=== PATIENT | female | born 1990 | race American Indian/Alaskan Native ===

== ENCOUNTER 2016-08-12 15:18 | Emergency (ER) | payer MEDICAID ==
--- NOTE | 2016-08-12 17:19 | Emergency Department Report ---
ED Abdominal Pain HPI - General Chief Complaint: Abdominal Pain Stated Complaint: BACK/ABD PAIN Time Seen by Provider: 08/12/16 17:06 Source: patient Mode of arrival: Ambulatory Limitations: No Limitations - History of Present Illness Initial Comments: 25-year-old female presents to the emergency department complaining of lower abdominal pain and back pain. Symptoms have been intermittent for the past 2 days. Patient describes cramping pain. Patient states that she had a vaginal delivery in [place], [place] on 08/03/2016. This delivery was complicated by blood loss requiring transfusion. Patient states she is continuing to have mild vaginal bleeding, but this is improving on a daily basis. She denies fever. There has been no nausea or vomiting. There are no other complaints. MD Complaint: abdominal pain -: Gradual, days(s) (2) Location: suprapubic Radiation: none Migration to: no migration Severity: moderate Severity scale (0 -10): 5 Quality: cramping Consistency: intermittent Improves With: nothing Worsens With: nothing Context: recent surgery/procedure Associated Symptoms: other (back pain) - Related Data Previous Rx's Medication Instructions Recorded Last Taken Type Labetalol [Normodyne TAB] 200 mg PO BID #60 tablet 06/04/13 04/16/14 Rx amLODIPine [Norvasc] 10 mg PO DAILY #30 tab 04/17/14 Unknown Rx Ferrous Sulfate [Feosol 325 MG tab] 325 mg PO BID #60 tablet 01/02/15 Unknown Rx Ibuprofen [Motrin 600 MG tab] 600 mg PO Q6H #30 tablet 01/02/15 Unknown Rx Labetalol [Normodyne TAB] 300 mg PO TID #120 tablet 01/02/15 Unknown Rx NIFEdipine XL [Procardia Xl] 30 mg PO QDAY #30 tablet 01/02/15 Unknown Rx Vit-Fe Fumar-FA [ 1 each PO QDAY #30 tablet 01/02/15 Unknown Rx Vitamin] Labetalol [Normodyne TAB] 400 mg PO TID #120 tablet 01/03/15 Unknown Rx NIFEdipine XL [Procardia Xl] 30 mg PO Q12HR #60 tab 01/03/15 Unknown Rx HYDROcodone/APAP 5-325 [Ilfeld 2 each PO Q6H PRN #20 tablet 08/12/16 Unknown Rx 5-325 mg TAB] Allergies Allergy/AdvReac Type Severity Reaction Status Date / Time No Known Allergies Allergy Verified 12/31/14 21:17 ED Review of Systems ROS: Stated complaint: BACK/ABD PAIN Other details as noted in HPI Comment: All other systems reviewed and negative Gastrointestinal: abdominal pain Genitourinary: abnormal menses Musculoskeletal: back pain ED Past Medical Hx - Past Medical History Previous Medical History?: Yes Hx Hypertension: Yes (PIH superimposed on chronic) Hx CVA: No Hx Heart Attack/AMI: No Hx Congestive Heart Failure: No Hx Diabetes: No Hx Deep Vein Thrombosis: No Hx Pulmonary Embolism: No Hx GERD: No Hx Liver Disease: No Hx Renal Disease: No Hx Sickle Cell Disease: No Hx Arthritis: No Hx Headaches / Migraines: No Hx Seizures: No Hx Kidney Stones: No Hx Psychiatric Treatment: No Hx Asthma: Yes (last attack 10yrs ago) Hx COPD: No Hx Tuberculosis: No Hx Dementia: No Hx HIV: No Additional medical history: Vaginal delivery x 4 - Surgical History Past Surgical History?: No Hx Coronary Stent: No Hx Open Heart Surgery: No Hx Pacemaker: No Hx Internal Defibrillator: No Hx Cholecystectomy: No Hx Appendectomy: No Hx Breast Surgery: No - Family History Family history: no significant - Social History Smoking Status: Former Smoker Substance Use Type: Prescribed - Medications Home Medications: Home Medications Medication Instructions Recorded Confirmed Last Taken Type Labetalol [Normodyne TAB] 200 mg PO BID #60 tablet 06/04/13 04/16/14 04/16/14 Rx amLODIPine [Norvasc] 10 mg PO DAILY #30 tab 04/17/14 Unknown Rx Ferrous Sulfate [Feosol 325 MG tab] 325 mg PO BID #60 tablet 01/02/15 Unknown Rx Ibuprofen [Motrin 600 MG tab] 600 mg PO Q6H #30 tablet 01/02/15 Unknown Rx Labetalol [Normodyne TAB] 300 mg PO TID #120 tablet 01/02/15 Unknown Rx NIFEdipine XL [Procardia Xl] 30 mg PO QDAY #30 tablet 01/02/15 Unknown Rx Vit-Fe Fumar-FA [ 1 each PO QDAY #30 tablet 01/02/15 Unknown Rx Vitamin] Labetalol [Normodyne TAB] 400 mg PO TID #120 tablet 01/03/15 Unknown Rx NIFEdipine XL [Procardia Xl] 30 mg PO Q12HR #60 tab 09/20/15 Unknown Rx HYDROcodone/APAP 5-325 [Ilfeld 2 each PO Q6H PRN #20 tablet 08/12/16 Unknown Rx 5-325 mg TAB] ED Physical Exam - General Limitations: No Limitations General appearance: alert, in no apparent distress - Head Head exam: Present: atraumatic, normocephalic - Eye Eye exam: Present: normal appearance, PERRL, EOMI - ENT ENT exam: Present: normal exam, normal orophraynx, mucous membranes moist - Neck Neck exam: Present: normal inspection, full ROM. Absent: tenderness - Respiratory Respiratory exam: Present: normal lung sounds bilaterally. Absent: respiratory distress - Cardiovascular Cardiovascular Exam: Present: regular rate, normal rhythm, normal heart sounds - GI/Abdominal GI/Abdominal exam: Present: soft, tenderness (mild suprapubic tenderness to palpation). Absent: distended, normal bowel sounds - Extremities Exam Extremities exam: Present: normal inspection, full ROM. Absent: tenderness - Back Exam Back exam: Present: normal inspection, full ROM. Absent: tenderness - Neurological Exam Neurological exam: Present: alert, oriented X3. Absent: motor sensory deficit - Skin Skin exam: Present: warm, dry, intact ED Course Vital Signs 08/12/16 08/12/16 15:39 17:43 Temperature 98.8 F 98 F Pulse Rate 87 76 Respiratory 20 14 Rate Blood Pressure 157/105 Blood Pressure 136/99 [Right] O2 Sat by Pulse 100 100 Oximetry ED Medical Decision Making - Lab Data Result diagrams: 08/12/16 17:59 08/12/16 17:59 - Medical Decision Making Laboratory results reviewed and discussed with the patient. There is low suspicion of retained proximal of conception due to the improvement in vaginal bleeding and unremarkable labs. Patient will be discharged home at this time to follow up with [facility]. - Differential Diagnosis UTI, retained products of conception, uterine contraction Critical care attestation.: If time is entered above; I have spent that time in minutes in the direct care of this critically ill patient, excluding procedure time. ED Disposition Clinical Impression: Lower abdominal pain Disposition: DISCHARGED TO HOME OR SELFCARE Is pt being admited?: No Condition: Stable Instructions: Abdominal Pain (ED) Prescriptions: HYDROcodone/APAP 5-325 [Ilfeld 5-325 mg TAB] 2 each PO Q6H PRN #20 tablet PRN Reason: Pain Referrals: ANGELO ZACARIAS MD [Staff Physician] - 3-5 Days Time of Disposition: 19:17
[2016-08-12 17:35] LABS: Bacteria,Urine 2+ /HPF (Negative); Bilirubin,Urine NEG (Negative); Blood,Urine LG (Negative); Ketones,Urine NEG (Negative); Leukocyte Esterase,Urine LG (Negative); Mucus,Urine 3+ /HPF; Nitrite,Urine NEG (Negative); Urobilinogen,Urine < 2.0 mg/dL (<2.0)
[2016-08-12 17:41] LABS: RBC,Urine > 182.0 /HPF (0.0-6.0)
[2016-08-12 17:44] VITALS: BP 136/99
[2016-08-12 18:18] LABS: Basophils % (Auto) 0.3 % (0.0-1.8); Eosinophils % (Auto) 1.7 % (0.0-4.3); Hematocrit 32.2 % (30.3-42.9); Mean Corpuscular HGB Conc 31 % (30-34); Platelet Count 383 K/mm3 (140-440); Red Blood Count 4.62 M/mm3 (3.65-5.03); White Blood Count 9.8 K/mm3 (4.5-11.0)
[2016-08-12 18:34] LABS: Alanine Aminotransferase 11 units/L (7-56); Albumin 3.6 g/dL (3.9-5); Albumin/Globulin Ratio 0.9 %; Alkaline Phosphatase 82 units/L (35-129); Anion Gap 17 mmol/L; BUN/Creatinine Ratio 26.66; Blood Urea Nitrogen 16 mg/dL (7-17); Calcium 8.7 mg/dL (8.4-10.2); Carbon Dioxide 23 mmol/L (22-30); Chloride 100.6 mmol/L (98-107); Glucose 82 mg/dL (65-100); Lipase 18 units/L (13-60); Potassium 3.5 mmol/L (3.6-5.0); Sodium 137 mmol/L (137-145); Total Protein 7.5 g/dL (6.3-8.2)
[2016-08-12 18:41] LABS: Mean Corpuscular Hemoglobin 22 pg (28-32); Mean Corpuscular Volume 70 fl (79-97); Red Cell Distribution Width 22.8 % (13.2-15.2)
== END 2016-08-12 19:50 | disposition home or self-care (01) ==
LOC: ED 15:18
DX: R10.30 Lower abdominal pain, unspecified (principal); I10 Essential (primary) hypertension; J45.909 Unspecified asthma, uncomplicated; Z87.891 Personal history of nicotine dependence
CPT/HCPCS: 36415; 80053; 81001; 83690; 85025; 99283